=== PATIENT | female | born 1970 | race Caucasian/White ===

== ENCOUNTER 2016-12-05 22:41 | Emergency (ER) | payer OTHER ==
[2016-12-05] MEDS ORDERED: IOHEXOL 350 MG/ML 10 ML VIAL (for RAD DIAG) IVCONTRAST ONE (22:42)
[2016-12-05] MEDS ORDERED: DIPHTH/TETANUS/ACEL PERTUSSIS (BOOSTER) 0.5 ML VIAL/PFS IM ONE (22:46)
[2016-12-05] MEDS ORDERED: SODIUM CHLOR 0.9% 1000 ML INJ 1,000 ML IV SCH (22:51)
[2016-12-05] MEDS ORDERED: SODIUM CHLORIDE 0.9% FLUSH 10 ML FLUSH IVF PRN (23:00)
[2016-12-05] MEDS ORDERED: ceFAZolin 2 GM PREMIX 50 ML IV ONE (23:00)
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
[2016-12-05 23:22] LABS: AUTOMATED NEUTROPHIL # 7.2 TH/MM3 (1.8-7.7); BASOPHIL # 0.1 TH/MM3 (0-0.2); BASOPHIL % 0.6 % (0.0-2.0); EOSINOPHIL # 0.3 TH/MM3 (0-0.4); EOSINOPHIL % 2.2 % (0.0-4.0); HEMATOCRIT 42.6 % (35.0-46.0); HEMOGLOBIN 14.3 GM/DL (11.6-15.3); LYMPH % 33.7 % (9.0-44.0); LYMPHOCYTE # 4.4 TH/MM3 (1.0-4.8); MEAN CELL VOLUME 93.3 FL (80.0-100.0); MEAN CORPUSCULAR HEMOGLOBIN 31.3 PG (27.0-34.0); MEAN CORPUSCULAR HGB CONC 33.6 % (32.0-36.0); MEAN PLATELET VOLUME 11.2 FL (7.0-11.0); MONO % 8.1 % (0.0-8.0); MONOCYTE # 1.1 TH/MM3 (0-0.9); NEUT % 55.4 % (16.0-70.0); PLATELET COUNT 156 TH/MM3 (150-450); RED BLOOD COUNT 4.56 MIL/MM3 (4.00-5.30); RED CELL DISTRIBUTION WIDTH 14.5 % (11.6-17.2)
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
[2016-12-05 23:35] LABS: INTERNATIONAL NORMALIZED RATIO 0.9 RATIO
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
[2016-12-06 00:09] VITALS: BP 145/85; PULSE 116; PULSE 122; RESP 18; O2SAT 99
[2016-12-06] MEDS ORDERED: BUPR150XL PO (07:22)
[2016-12-06] MEDS ORDERED: LISI-519 PO (07:22)
[2016-12-06] MEDS ORDERED: NEXI20CA PO (07:22)
== END 2016-12-06 02:24 | disposition home or self-care (01) ==
LOC: EDBD 22:41 → NEPI 22:41 → NEPD 12-06 02:24
DX: S00.81XA Abrasion of other part of head, initial encounter (principal); S30.811A Abrasion of abdominal wall, initial encounter; S20.319A Abrasion of unspecified front wall of thorax, initial encounter; R52 Pain, unspecified; D72.829 Elevated white blood cell count, unspecified; K76.0 Fatty (change of) liver, not elsewhere classified; N28.1 Cyst of kidney, acquired; Z23 Encounter for immunization; V29.88XA Motorcycle rider (driver) (passenger) injured in other specified transport accidents, initial encounter
CPT/HCPCS: 70450; 71010; 71260; 72125; 72170; 74177; 80307; 82435; 82565; 82947; 84132; 84295; 84520; 85025; 85610; 85730; 86850; 86900; 86901; 90471; 90715; 96361; 96374; 96376; 99285; 99291; J0690; J7030; Q9967; G0390

== ENCOUNTER 2016-12-06 06:59 | Emergency (ER) | payer OTHER ==
[~2016-12-06] VITALS: Ht 160 cm; Wt 63.0 kg
[2016-12-06 07:02] VITALS: BP 137/84; PULSE 97; RESP 16; TEMP 97.9; O2SAT 95
[2016-12-06] MEDS ORDERED: LISI-519 PO (07:22)
[2016-12-06] MEDS ORDERED: NEXI20CA PO (07:22)
[2016-12-06] MEDS ORDERED: BUPR150XL PO (07:22)
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
[2016-12-06] MEDS ORDERED: LIDOCAINE HCL 1% 50 ML VIAL INFIL ONE (07:45)
== END 2016-12-06 09:00 | disposition home or self-care (01) ==
LOC: NEPE 06:59 → MERGE 06:59 → NEPE 09:00
DX: S06.0X0A Concussion without loss of consciousness, initial encounter (principal); S01.01XA Laceration without foreign body of scalp, initial encounter; E11.9 Type 2 diabetes mellitus without complications; I10 Essential (primary) hypertension; F17.200 Nicotine dependence, unspecified, uncomplicated; Z79.899 Other long term (current) drug therapy; V29.9XXA Motorcycle rider (driver) (passenger) injured in unspecified traffic accident, initial encounter
CPT/HCPCS: 12002